=== PATIENT | male | born 1960 | race Caucasian/White ===

== ENCOUNTER 2017-04-07 13:29 | Emergency (ER) | payer OTHER ==
[2017-04-07 13:49] VITALS: BP 135/94; PULSE 75; RESP 18; TEMP 98; O2SAT 96
--- NOTE | 2017-04-07 14:28 | EDPHY ---
H & P Stated Complaint: heavy ladder hit lt elbow while working Time Seen by Provider: 04/07/17 14:19 HPI/ROS: CHIEF COMPLAINT: Arm pain HISTORY OF PRESENT ILLNESS: The patient is a 56-year-old man who was riding in a golf cart with a ladder when the ladder started to fall off any trying to catch with an extended arm. He weighed about 40 lb. He had sudden pain in his biceps tendon area. He has pain now with palpation of the antecubital space or bicep. REVIEW OF SYSTEMS: Constitutional: denies: chills, fever, recent illness, recent injury EENTM: denies: blurred vision, double vision, nose congestion Respiratory: denies: cough, shortness of breath Cardiac: denies: chest pain, irregular heart rate, lightheadedness, palpitations Gastrointestinal/Abdominal: denies: abdominal pain, diarrhea, nausea, vomiting, blood streaked stools Genitourinary: denies: dysuria, frequency, hematuria, pain Musculoskeletal: See HPI Skin: denies: lesions, rash, jaundice, bruising Neurological: denies: headache, numbness, paresthesia, tingling, dizziness, weakness Hematologic/Lymphatic: denies: blood clots, easy bleeding, easy bruising Immunologic/allergic: denies: HIV/AIDS, transplant EXAM: GENERAL: Well-appearing, well-nourished and in no acute distress. HEAD: Atraumatic, normocephalic. EYES: Pupils equal round and reactive to light, extraocular movements intact, sclera anicteric, conjunctiva are normal. ENT: TMs normal, nares patent, oropharynx clear without exudates. Moist mucous membranes. NECK: Normal range of motion, supple without lymphadenopathy or JVD. LUNGS: Breath sounds clear to auscultation bilaterally and equal. No wheezes rales or rhonchi. HEART: Regular rate and rhythm without murmurs, rubs or gallops. ABDOMEN: Soft, nontender, normoactive bowel sounds. No guarding, no rebound. No masses appreciated. BACK: No CVA tenderness, no spinal tenderness, step-offs or deformities EXTREMITIES: The patient has a deformed left biceps as well as pain in the region. NEUROLOGICAL: Cranial nerves II through XII grossly intact. Normal speech, normal gait. 5/5 strength, normal movement in all extremities, normal sensation PSYCH: Normal mood, normal affect. SKIN: Warm, dry, normal turgor, no visible rashes or lesions. Source: Patient Exam Limitations: No limitations - Personal History Current Tetanus Diphtheria and Acellular Pertussis (TDAP): Yes - Medical/Surgical History Hx Asthma: No Hx Chronic Respiratory Disease: No Hx Diabetes: No Hx Cardiac Disease: No Hx Renal Disease: No Hx Cirrhosis: No Hx Alcoholism: No Other PMH: Lt heal surg/GERD - Family History Significant Family History: No pertinent family hx - Social History Smoking Status: Former smoker Alcohol Use: Sober Drug Use: None Constitutional: Initial Vital Signs Temperature (C) 36.6 C 04/07/17 13:40 Heart Rate 75 04/07/17 13:40 Respiratory Rate 18 04/07/17 13:40 Blood Pressure 135/94 H 04/07/17 13:40 O2 Sat (%) 96 04/07/17 13:40 O2 Delivery Mode Room Air Allergies/Adverse Reactions: codeine Allergy (Verified 07/08/16 17:16) Home Medications: Medication Instructions Recorded Prilosec 20 mg 07/08/16 Medical Decision Making Procedures: Procedure: Splint placement. A sling was applied. After application of the splint I returned and re- examined the patient. The splint was adequately immobilizing the joint and distal to the splint the patient's circulation and sensation was intact. ED Course/Re-evaluation: The patient's exam is consistent with bicep tendon rupture. X-rays are negative for fracture. I will treat him with a sling, rest and anti- inflammatories. Also have him follow up with Orthopedics. Differential Diagnosis: Partial list of the Differential diagnosis considered include but were not limited to; elbow fracture, subluxation, biceps tendon tear and although unlikely based on the history and physical exam, I also considered infection, arthritis. I discussed these differential diagnoses and the plan with the patient as well as the usual and expected course. The patient understands that the diagnosis is provisional and that in medicine we are not always correct and that further workup is often warranted. Usual and customary warnings were given. All of the patient's questions were answered. The patient was instructed to return to the emergency department should the symptoms at all worsen or return, otherwise to followup with the physician as we discussed. Departure - Departure Disposition: Home, Routine, Self-Care Clinical Impression: Biceps tendon rupture Qualifiers: Encounter type: initial encounter Laterality: left Qualified Code(s): S46.112A - Strain of muscle, fascia and tendon of long head of biceps, left arm, initial encounter Condition: Fair Instructions: Tendon Rupture (ED) Referrals: Richi Rendon MD [Medical Doctor] - As per Instructions Stand Alone Forms: Work Limited Duty, Work Comp Follow Up
== END 2017-04-07 14:42 | disposition home or self-care (01) ==
LOC: CED 13:29
DX: S46.112A Strain of muscle, fascia and tendon of long head of biceps, left arm, initial encounter (principal); Z87.891 Personal history of nicotine dependence; X58.XXXA Exposure to other specified factors, initial encounter; Y99.0 Civilian activity done for income or pay; Y93.89 Activity, other specified
CPT/HCPCS: 73080-PO; A4565

== ENCOUNTER → 2017-04-22 | Outpatient (CLI) | payer OTHER | LOC: CIMAGING 15:43 | PROVIDERS: ATTEND Physical Medicine & Rehabilitation | DX: M79.632 Pain in left forearm (principal) | CPT/HCPCS: 73090-PO ==

== ENCOUNTER 2017-05-21 15:36 | Emergency (ER) | payer OTHER ==
[2017-05-21 15:48] VITALS: RESP 18
--- NOTE | 2017-05-21 16:13 | EDPHY ---
H & P Time Seen by Provider: 05/21/17 15:42 HPI/ROS: CHIEF COMPLAINT: Swelling of the left arm HISTORY OF PRESENT ILLNESS: 57-year-old male who had distal biceps replantation surgery on 05/[address] Wagner presents now with swelling of his forearm. Patient has been doing well postoperatively. Began physical therapy this week on Wednesday and then again on Wednesday. Today the family noticed that is hand and forearm were swollen. No complaints of pain. No erythema. No shortness of breath. No nausea. No vomiting. No tingling. No prior history of DVTs or PEs. The patient is wearing a upper extremity brace which is locked at 90 degrees. He saw his primary care physician who advised that he come to the emergency department to evaluate for DVT. Patient has been up and ambulatory at home. No fever, chills, chest pain, shortness of breath, palpitations, vomiting, diarrhea, urinary complaints, headache, lightheadedness. REVIEW OF SYSTEMS: Aside from elements discussed in the HPI, a comprehensive 10-point review of systems was reviewed and is negative. PAST MEDICAL HISTORY: Distal biceps tendon repair. GERD. SOCIAL HISTORY: Nonsmoker. VITAL SIGNS: see nurse's notes. GENERAL: Well-developed, well-nourished, in no acute distress. HEENT: Normal, no discharge or icterus, moist mucous membranes. Neck: supple, FROM. LUNGS: Clear to auscultation bilaterally, no wheezes, rhonchi or rales. CARDIAC: Regular rate and rhythm, no rubs, murmurs or gallops. ABDOMEN: Soft, nontender, nondistended, bowel sounds normal. BACK: No CVA tenderness. No vertebral tenderness. EXTREMITIES: Left upper extremity: Patient presents wearing a dynamic brace which is locked at 90 degrees. Brace was removed. He has edema in his hand and forearm. No swelling of the humerus. No lymphadenopathy, swelling, or tenderness in the axilla. Surgical incision at the antecubital fossa is well healed and Steri-Strips are present. Patient has developed several areas of skin breakdown and blistering along the volar aspect of the forearm from the brace. Slight erythema is present but no overt signs of infection. NEURO: Alert and oriented, grossly nonfocal. SKIN: Warm and dry, no rash. Smoking Status: Former smoker Constitutional: Initial Vital Signs Temperature (C) 37.2 C 05/21/17 15:38 Heart Rate 71 05/21/17 15:38 Respiratory Rate 18 05/21/17 15:38 Blood Pressure 138/88 H 05/21/17 15:38 O2 Sat (%) 94 05/21/17 15:38 O2 Delivery Mode Room Air Allergies/Adverse Reactions: codeine Allergy (Verified 07/08/16 17:16) Home Medications: Medication Instructions Recorded Prilosec 20 mg 07/08/16 Medical Decision Making - Diagnostics Imaging Results: Results: An ultrasound scan of the left upper extremity was obtained. The results of the study were reported to me: No deep venous thrombus. The study was read by Dr. Carroll. I discussed the results of the study with the patient. ED Course/Re-evaluation: 57-year-old male with swelling of his left upper extremity. Patient is approximately 2 weeks out from an upper extremity surgery. Ultrasound demonstrates no deep venous thrombus. Patient was reassured and was given information regarding dependent edema. Differential Diagnosis: Differential diagnoses for the patient's symptom complex was considered including but not limited to superficial thrombus, deep venous thrombus, electrolyte abnormalities, allergic reaction, infection, cellulitis, dependent edema. Departure - Departure Disposition: Home, Routine, Self-Care Clinical Impression: Edema of upper extremity, Local skin irritation Condition: Good Instructions: Blister (ED), Edema (ED) Additional Instructions: Please use the left hand as much as possible given your restrictions. Cover the open blisters with a thin layer of antibiotic cream. Areas of the skin that are irritated, itching, and red from rubbing on the brace can be treated with topical Benadryl lotion. Referrals: Jim Wagner MD [Medical Doctor] - As per Instructions (Follow-up as scheduled.) Trice Casey MD [Medical Doctor] - Follow Up Only If Needed
[2017-05-21 17:51] VITALS: BP 121/78; PULSE 64; TEMP 98.2; O2SAT 93
== END 2017-05-21 17:51 | disposition home or self-care (01) ==
LOC: CED 15:36
DX: R60.0 Localized edema (principal); L98.9 Disorder of the skin and subcutaneous tissue, unspecified; Z87.891 Personal history of nicotine dependence
CPT/HCPCS: 93971-PO